=== PATIENT | female | born 1955 | race Caucasian/White ===

== ENCOUNTER 2020-11-04 15:10 | Outpatient (REF) | payer OTHER, SELFPAY ==
--- NOTE | 2020-11-04 10:00 | PAPFT_PTH ---
PATIENT: Rosalva Mukherjee LOC: [facility]#:[id number] AGE/SX: 65/F ROOM: RE11/04/[address]: Mony Sauer : 1955 BED: DIS: 11/04/2020 SPEC #: [id number] RECD: 11/05/20 13:12 STATUS: GENARO OSUNA #: [id number] SURENDRA: 11/04/20 10:[address]: Mony Sauer DEPT: [facility] Cytology RECD BY: Bing Ann Tissues: 1 - CX/ENDOCX FOR PAP SMEARS Procedures: PAP THIN PREP/[facility] Screening HPV DNA PROBE Comments: [id number]
[2020-11-04 14:28] LABS: TSH 0.33 uIU/mL (0.36-3.74)
== END 2020-11-04 15:11 | disposition home or self-care (01) ==
LOC: NCHCN 15:10
PROVIDERS: Visit Provider Nurse Practitioner Community Health
DX: R94.6 Abnormal results of thyroid function studies (principal); Z51.81 Encounter for therapeutic drug level monitoring; Z12.4 Encounter for screening for malignant neoplasm of cervix; Z00.00 Encounter for general adult medical examination without abnormal findings; Z11.51 Encounter for screening for human papillomavirus (HPV)
CPT/HCPCS: 88142; 84443; 87624

== ENCOUNTER 2020-12-10 09:46 | Outpatient (REF) | payer OTHER, SELFPAY ==
[2020-12-10 21:26] LABS: TSH 0.64 uIU/mL (0.36-3.74)
== END 2020-12-10 09:47 | disposition home or self-care (01) ==
LOC: NCHCN 09:46
PROVIDERS: Referring Provider Nurse Practitioner Community Health; Visit Provider Nurse Practitioner Community Health
DX: E03.9 Hypothyroidism, unspecified (principal)
CPT/HCPCS: 84443

== ENCOUNTER 2022-01-19 16:21 | Outpatient (REF) | payer OTHER, SELFPAY ==
[2022-01-19 19:49] LABS: ALT 17 U/L (14-59); AST 13 U/L (15-37); Alkaline Phosphatase 64 U/L (46-116); Anion Gap 7.7 mmol/L (3-11); BUN 23 mg/dL (7-18); Bilirubin, Total 0.4 mg/dL (0.2-1.0); CO2 29.3 mmol/L (21.0-32.0); Calcium 9.7 mg/dL (8.5-10.1); Calculated LDL 160 mg/dL (<100); Chloride 104 mmol/L (98-107); Cholesterol 227 mg/dL (<200); Estimated GFR 55.82 (mL/min/1.73m2); Glucose 100 mg/dL (74-106); HDL Cholesterol 53 mg/dL (40-60); Potassium 4.3 mmol/L (3.5-5.1); Sodium 141 mmol/L (136-145); TSH 0.57 uIU/mL (0.36-3.74); Triglyceride 74 mg/dL (<150)
== END 2022-01-19 16:22 | disposition home or self-care (01) ==
LOC: NCHCN 16:21
PROVIDERS: Visit Provider Nurse Practitioner Family
DX: E03.9 Hypothyroidism, unspecified (principal); Z13.220 Encounter for screening for lipoid disorders; Z13.6 Encounter for screening for cardiovascular disorders
CPT/HCPCS: 80053; 80061; 85027; 83036; 84443

== ENCOUNTER 2022-06-12 23:55 | Outpatient (REF) | payer OTHER, SELFPAY ==
[2022-06-13 01:45] LABS: Abs Immature Grans 0.02 10^3/uL (0.0-0.06); Absolute Basophil Count 0.03 10^3/uL (0.0-0.2); Absolute Eosinophil Count 0.11 10^3/uL (0.0-0.7); Absolute Lymphocyte Count 1.96 10^3/uL (1.2-3.4); Absolute Monocyte Count 0.35 10^3/uL (0.1-0.8); Absolute Neutrophil Count 3.06 10^3/uL (1.2-6.7); Basophils % 0.5; HGB 12.6 g/dL (11.2-15.7); Immature Grans % 0.4; Lymphocytes % 35.4; MCH 27.3 pg (27.0-33.0); MCHC 31.5 % (32.0-36.0); MCV 87 fL (80-95); MPV 10.3 fL (8.0-11.0); Monocytes % 6.3; Neutrophils % 55.4; Platelet Count 239 10^3/uL (130-400); RBC 4.61 10^6/uL (3.93-5.22); RDW 13.4 % (11.7-14.6); RDW-SD 42.5 fL; WBC 5.53 10^3/uL (4.4-10.8)
[2022-06-13 01:57] LABS: Hemoglobin A1C 5.7 % (<5.7)
[2022-06-13 02:03] LABS: ALT 17 U/L (14-59); AST 27 U/L (15-37); Albumin 3.9 g/dL (3.4-5.0); Alkaline Phosphatase 60 U/L (46-116); Anion Gap 8.4 mmol/L (3-11); BUN 17 mg/dL (7-18); Bilirubin, Total 0.4 mg/dL (0.2-1.0); CO2 24.6 mmol/L (21.0-32.0); CREATININE 1.1 mg/dL (0.55-1.02); Calcium 9.6 mg/dL (8.5-10.1); Chloride 105 mmol/L (98-107); Estimated GFR 56.11 (mL/min/1.73m2); Glucose 90 mg/dL (74-106); Lipase 197 U/L (73-393); Potassium 4.4 mmol/L (3.5-5.1); Sodium 138 mmol/L (136-145); TSH 1.18 uIU/mL (0.36-3.74)
== END 2022-06-12 23:56 | disposition home or self-care (01) ==
LOC: NCHCN 23:55
PROVIDERS: Visit Provider Nurse Practitioner Family
DX: R19.7 Diarrhea, unspecified (principal); E03.9 Hypothyroidism, unspecified; E66.9 Obesity, unspecified
CPT/HCPCS: 80053; 83690; 83036; 84443; 85025

== ENCOUNTER 2023-07-25 19:10 | Outpatient (REF) | payer OTHER, SELFPAY ==
[2023-07-25 14:42] LABS: ALT 19 U/L (14-59); AST 15 U/L (15-37); Albumin 3.9 g/dL (3.4-5.0); Alkaline Phosphatase 70 U/L (46-116); Anion Gap 8.9 mmol/L (3-11); BUN 14 mg/dL (7-18); Bilirubin, Total 0.6 mg/dL (0.2-1.0); CO2 26.1 mmol/L (21.0-32.0); Calcium 9.7 mg/dL (8.5-10.1); Calculated LDL 161 mg/dL (<100); Chloride 104 mmol/L (98-107); Cholesterol 240 mg/dL (<200); Estimated GFR 62.13 (mL/min/1.73m2); Glucose 97 mg/dL (74-106); HDL Cholesterol 63 mg/dL (40-60); Hemoglobin A1C 5.6 % (<5.7); Potassium 3.6 mmol/L (3.5-5.1); Sodium 139 mmol/L (136-145); TSH (W/Ref FT4) 0.47 uIU/mL (0.36-3.74); Total Protein 7.3 g/dL (6.4-8.2); Triglyceride 80 mg/dL (<150)
--- OUTSIDE RECORDS SUMMARY | 2023-07-27 11:10 | XMS_ITS | CCD ---
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 Allergies Allergy Code Allergy Type Reaction Status No Known Allergies 0 No known allergies Active Procedures Unknown or Not Available. History of Immunizations Unknown or Not Available. Problems Unknown or Not Available. Results Unknown or Not Available. Active Medications Unknown or Not Available. Medications Administered During Visit Unknown or Not Available. Encounters Encounter Diagnosis Diagnosis Code Start Date Encounter for screening mamm ogram for malignant neoplasm of breast Z1231 07/13/2022 Social History Smoking Status Code Start Date End Date Never smoker [id number] Patient Decision Aids Unknown or Not Available. Discharge Instructions You were admitted to [facility] on 07/13/2022 13:48 with a principal diagnosis of Encounter for screening mammogram for malignant neoplasm of breast You were discharged from [facility] on 07/13/2022 13:48 Should you have any questions prior to discharge, please contact a member of your healthcare team. If you have left the hospital and have any questions, please contact your primary care physician. Chief Complaint and Reason For Visit Chief Complaint Date of Onset SCREENING Function Status Unknown or Not Available. Plan of Care Unknown or Not Available. Referral/Transition of Care Unknown or Not Available.
--- OUTSIDE RECORDS SUMMARY | 2023-07-27 11:10 | XMS_ITS | CCD ---
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 Allergies [...] Encounters Encounter Diagnosis Diagnosis Code Start Date Pain in right toe(s) R06041 09/29/2022 Social History Smoking Status Code Start Date End Date Never smoker [id number] Patient Decision Aids Unknown or Not Available. Discharge Instructions You were admitted to on 09/29/2022 00:00 with a principal diagnosis of Pain in right toe(s) You were discharged from on 09/29/2022 00:00 Should you have any questions prior to discharge, please contact a member of your healthcare team. If you have left the hospital and have any questions, please contact your primary care physician. Chief Complaint and Reason For Visit Unknown or Not Available. Function Status Unknown or Not Available. Plan of Care Unknown or Not Available. Referral/Transition of Care Unknown or Not Available.
--- OUTSIDE RECORDS SUMMARY | 2023-07-27 11:11 | XMS_ITS | CCD ---
Author Name Unknown Address [address] [place] [address] [id number] Organization Unknown Address [address] [place] [address] [phone] Care Team Providers Care Pca Name Role Phone JOYCE BENITEZ MD Attending Physician [phone] JOYCE BENITEZ MD Er Physician 6 [phone] Vital Signs Unknown or Not Available. Allergies Allergy Code Allergy Type Reaction Status No Known Allergies 0 No known allergies Active Procedures Unknown or Not Available. History of Immunizations Unknown or Not Available. Problems Unknown or Not Available. Results Unknown or Not Available. Active Medications Medications Administered During Visit Unknown or Not Available. Encounters Encounter Diagnosis Diagnosis Code Start Date Contact with and (suspected) exposure to rabies Z203 01/20/2021 Social History Smoking Status Code Start Date End Date Never smoker [id number] Patient Decision Aids Unknown or Not Available. Discharge Instructions You were admitted to [facility] on 01/20/2021 08:51 with a principal diagnosis of Contact with and (suspected) exposure to rabies You were discharged from [facility] on 01/20/2021 10:00 Should you have any questions prior to discharge, please contact a member of your healthcare team. If you have left the hospital and have any questions, please contact your primary care physician. Chief Complaint and Reason For Visit Chief Complaint Date of Onset POSSIBLE RABIES EXPOSURE Function Status Unknown or Not Available. Plan of Care Unknown or Not Available. Referral/Transition of Care Unknown or Not Available.
--- OUTSIDE RECORDS SUMMARY | 2023-07-27 11:11 | XMS_ITS | CCD ---
Author Name Unknown Address [address] [place] [address] [phone] Organization Unknown Address [address] [place], [place] [phone] Care Team Providers Care Furnace Room Supervisor Name Role Phone JOYCE BENITEZ MD Attending Physician [phone] JOYCE BENITEZ MD Er Physician [phone] Vital Signs Unknown or Not Available. Allergies [...] with and (suspected) exposure to rabies Z203 01/27/2021 Social History Smoking Status Code Start Date End Date Never smoker [id number] Patient Decision Aids Unknown or Not Available. Discharge Instructions You were admitted to [facility] on 01/27/2021 10:06 with a principal diagnosis of Contact with and (suspected) exposure to rabies You were discharged from [facility] on 01/27/2021 10:33 Should you have any questions prior to discharge, please contact a member of your healthcare team. If you have left the hospital and have any questions, please contact your primary care physician. Chief Complaint and Reason For Visit Chief Complaint Date of Onset RABIES SHOT Function Status Unknown or Not Available. Plan of Care Unknown or Not Available. Referral/Transition of Care Unknown or Not Available.
--- OUTSIDE RECORDS SUMMARY | 2023-07-27 11:11 | XMS_ITS | CCD ---
Author Name Unknown Address [address] [place] [address] [phone] Organization Unknown Address [address] [place], [place] [phone] Care Team Providers Care Bus Analyst Name Role Phone SONIA CHARLES, BETTY Francis Attending Physician [phone] SUNNY HONG MD Er Physician 2 [phone] Vital Signs Unknown or Not Available. Allergies [...] with and (suspected) exposure to rabies Z203 02/03/2021 Social History Smoking Status Code Start Date End Date Never smoker [id number] Patient Decision Aids Unknown or Not Available. Discharge Instructions You were admitted to [facility] on 02/03/2021 08:48 with a principal diagnosis of Contact with and (suspected) exposure to rabies You were discharged from [facility] on 02/03/2021 09:23 Should you have any questions prior to discharge, please contact a member of your healthcare team. If you have left the hospital and have any questions, please contact your primary care physician. Chief Complaint and Reason For Visit Chief Complaint Date of Onset RABIES VACCINATION Function Status Unknown or Not Available. Plan of Care Unknown or Not Available. Referral/Transition of Care Unknown or Not Available.
--- OUTSIDE RECORDS SUMMARY | 2023-07-27 11:11 | XMS_ITS | CCD ---
Author Name Unknown Address [address] [place] [address] [id number] Organization Unknown Address [address] [place] [address] [id number] Care Team Providers Care Cdl Service Technician Name Role Phone ANUPAM CHARLES, MARCELL CUNNINGHAM Attending Physician [phone] RADHA BELL Er Physician 1 0 Vital Signs Unknown or Not Available. Allergies [...] with and (suspected) exposure to rabies Z203 01/23/2021 Social History Smoking Status Code Start Date End Date Never smoker [id number] Patient Decision Aids Unknown or Not Available. Discharge Instructions You were admitted to [facility] on 01/23/2021 11:44 with a principal diagnosis of Contact with and (suspected) exposure to rabies You were discharged from [facility] on 01/23/2021 12:13 Should you have any questions prior to discharge, please contact a member of your healthcare team. If you have left the hospital and have any questions, please contact your primary care physician. Chief Complaint and Reason For Visit Chief Complaint Date of Onset RABIES SHOT 2 Function Status Unknown or Not Available. Plan of Care Unknown or Not Available. Referral/Transition of Care Unknown or Not Available.
== END 2023-07-25 19:11 | disposition home or self-care (01) ==
LOC: NCHCN 19:10
PROVIDERS: Visit Provider Nurse Practitioner Family
DX: Z00.00 Encounter for general adult medical examination without abnormal findings (principal); E03.9 Hypothyroidism, unspecified; R73.03 Prediabetes; R79.89 Other specified abnormal findings of blood chemistry; Z13.220 Encounter for screening for lipoid disorders
CPT/HCPCS: 80053; 80061; 83036; 84443

== ENCOUNTER 2024-08-21 10:46 | Outpatient (REF) | payer MEDICARE, SELFPAY ==
[2024-08-21 22:06] LABS: Hemoglobin A1C 5.8 % (<5.7)
[2024-08-21 23:35] LABS: ALT 22 U/L (14-59); AST 22 U/L (15-37); Alkaline Phosphatase 78 U/L (46-116); Anion Gap 10.6 mmol/L (3-11); BUN 14 mg/dL (7-18); Bilirubin, Total 0.63 mg/dL (0.2-1.0); CO2 24.4 mmol/L (21.0-32.0); Calcium 9.9 mg/dL (8.5-10.1); Calculated LDL 153 mg/dL (<100); Chloride 105 mmol/L (98-107); Cholesterol 230 mg/dL (<200); Estimated GFR 61.75 (mL/min/1.73m2); Glucose 98 mg/dL (74-106); HDL Cholesterol 61 mg/dL (40-60); Potassium 4.5 mmol/L (3.5-5.1); Sodium 140 mmol/L (136-145); TSH (W/Ref FT4) 1.74 uIU/mL (0.36-3.74); Total Protein 7.5 g/dL (6.4-8.2); Triglyceride 84 mg/dL (<150)
== END 2024-08-21 10:47 | disposition home or self-care (01) ==
LOC: NCHCN 10:46
PROVIDERS: Visit Provider Nurse Practitioner Family
DX: E03.9 Hypothyroidism, unspecified (principal); R73.03 Prediabetes
CPT/HCPCS: 80053; 80061; 83036; 84443